=== PATIENT | male | born 1985 | race Caucasian/White ===

== ENCOUNTER 2017-04-29 20:54 | Emergency (ER) | payer SELFPAY ==
[~2017-04-29] VITALS: Ht 170.2 cm; Wt 82.5 kg
[2017-04-29 20:58] VITALS: Ht 170.2 cm; Wt 82.5 kg
== END 2017-04-30 00:13 | disposition left against medical advice (07) ==
LOC: FTE 20:54
DX: Z53.21 Procedure and treatment not carried out due to patient leaving prior to being seen by health care provider (principal)